=== PATIENT | female | born 1985 | race Caucasian/White ===

== ENCOUNTER 2016-06-13 01:08 | Emergency (ER) | payer SELFPAY ==
[~2016-06-13] VITALS: Ht 165.1 cm; Wt 61.2 kg
[2016-06-13 01:16] VITALS: BP 132/95
[2016-06-13] MEDS ORDERED: LORazepam Inj 2mg/ml 1ml IM ONE (02:00)
--- NOTE | 2016-06-13 03:06 | Emergency Room Report ---
History of Present Illness General Chief Complaint: Substance Abuse Source: Family Member, EMS Present Illness HPI Is a 30-year-old female who was out partying with her cousin. Cousin called 911 because patient is altered mental status. This occurred after taking a Mollie. No other drug use. No cocaine use. She took it before he never had this reaction. No suicidal thought homicidal thought. She is a little better now. She seemed to be very anxious. Allergies: Coded Allergies: UNABLE TO ASSESS (Unverified , 06/13/16) Patient History Past Medical History: see triage record, old chart reviewed Past Surgical History: other Pertinent Family History: none Social History: Reports: alcohol use Last Menstrual Period: unk Now: No Immunizations: other Reviewed Nursing Documentation: PMH: Agreed, PSxH: Agreed Nursing Documentation-PMH Past Medical History: Deferred Review of Systems Eye: Denies: blurred vision, eye pain ENT: Denies: ear pain, nose congestion, throat swelling Respiratory: Denies: cough, shortness of breath Cardiovascular: Denies: chest pain, palpitations Gastrointestinal: Denies: abdominal pain, diarrhea, nausea, vomiting Musculoskeletal: Denies: back pain, joint pain Skin: Denies: rash Neurological: Denies: headache, numbness Endocrine: Denies: increased thirst, increased urine Hematologic/Lymphatic: Denies: easy bruising All Other Systems: negative except mentioned in HPI Physical Exam Vital Signs Date Time Temp Pulse Resp B/P Pulse Ox O2 Delivery O2 Flow Rate FiO2 06/13/16 01:09 97.2 123 16 132/95 97 Room Air vitals normal except for tachycardia Sp02 EP Interpretation: reviewed, normal General Appearance: well appearing, no apparent distress, alert Head: normocephalic, atraumatic Eyes: bilateral eye EOMI, bilateral eye PERRL ENT: hearing grossly normal, normal pharynx Neck: full range of motion, supple, no meningismus Respiratory: chest non-tender, lungs clear, normal breath sounds Cardiovascular #1: regular rate, rhythm, no murmur Gastrointestinal: normal bowel sounds, non tender, no mass, no organomegaly, no bruit, non-distended Musculoskeletal: back normal, gait/station normal, normal range of motion Psychiatric: anxious - Anxious and agitated Skin: warm/dry Medical Decision Making Diagnostic Impression: Primary Impression: Substance abuse ER Course Patient presents with a drug overdose, unintentional. She is better now after Ativan. Heart rate down to 100. We'll discharge home with her cousin. Last Vital Signs Date Time Temp Pulse Resp B/P Pulse Ox O2 Delivery O2 Flow Rate FiO2 06/13/16 01:09 97.2 123 16 132/95 97 Room Air Status: improved Disposition: HOME, SELF-CARE Condition: Improved Patient Instructions: Substance Use Disorder Additional Instructions: Abstain from drugs and alcohol. Followup with your Dr. in 7 days. Return if worse. THERON FLETCHER M.D. Jun 13, 2016 03:05
[2016-06-13 03:08] VITALS: BP 129/84
[2016-06-13 03:14] VITALS: BP 129/84
== END 2016-06-13 03:14 | disposition home or self-care (01) ==
LOC: EDBD 01:08 → EMR 01:30
DX: F19.10 Other psychoactive substance abuse, uncomplicated (principal); R41.82 Altered mental status, unspecified
CPT/HCPCS: 96372; 99283